=== PATIENT | male | born 1970 | race African-American/Black ===

== ENCOUNTER 2017-02-11 16:42 | Emergency (ER) | payer OTHER ==
[~2017-02-11 16:42] MED LIST: HYDR10TA16 PO; Z.0.NO CURRENT MEDS
[2017-02-11 16:46] VITALS: BP 169/89; PULSE 77; RESP 16; TEMP 98.4; O2SAT 97
[2017-02-11] MEDS ORDERED: KETOROLAC TROMETHAMINE 60 MG/2 ML (IM) VIAL IM ONE (18:30)
[2017-02-11] MEDS ORDERED: ACETAMINOPHEN/HYDROcodone 325 MG/5 MG TAB PO ONE (18:30)
--- NOTE | 2017-02-11 18:34 | RADRPT ---
EXAM DATE/TIME: 02/11/2017 17:53 [place] COMPARISON: No previous studies available for comparison. INDICATIONS : Left lower posterior pain in ribs due to fall yesterday. MEDICAL HISTORY : None. SURGICAL HISTORY : None. ENCOUNTER: Initial ACUITY: 2 days PAIN SCORE: 10/10 LOCATION: Left lower posterior FINDINGS: The heart size is normal. The lungs are free of focal consolidation. There is a possible calcified gr anuloma in the right midlung. No effusion is seen. The bony structures appear grossly intact. CONCLUSION: No acute disease. Gustavo Pineda MD on February 11, 2017 at 18:32 Board Certified Radiologist. This report was verified electronically.
--- NOTE | 2017-02-11 18:35 | PD ---
HPI Chief Complaint: Pain: Acute or Chronic Time Seen by Provider: 18:21 Travel History International Travel<30 days: No Contact w/Intl Traveler<30days: No Traveled to known affect area: No History of Present Illness HPI 46-year-old male with pain to his left ribs after a slip and fall that occurred last night at work. States that he landed on his left side and thinks he broke a rib. States he has pain with inspiration and movement. The pain is moderate , constant, and occasionally sharp. Denies radiation of pain. Patient denies shortness of breath. States he took a friend's pain medication and had good relief with this. Patient denies head trauma, LOC, dizziness,, headache neck pain, back pain. He has no other complaints today. PFSH Past Medical History Cancer: No Endocrine: No Immune Disorder: No Implanted Vascular Access Dvce: No Psychiatric: No Social History Alcohol Use: Yes (2 BEERS A DAY) Tobacco Use: Yes (pack a day ) Substance Use: Yes ([facility] ) Allergies-Medications (Allergen,Severity, Reaction): Coded Allergies: No Known Allergies (Verified , 04/27/15) Reported Meds & Prescriptions Reported Meds & Active Scripts Active Ibuprofen 800 Mg Tab 800 Mg PO TID 10 Days Reported Lortab 10/500 (Acetaminophen/Hydrocodone Bitart) 10 Mg/500 Mg Tab 1 Tab PO Q4- 6HPRN FOR PAIN No Current Meds (Miscellaneous Medication) Replaced By [facility] Review of Systems Except as stated in HPI: all other systems reviewed are Neg Physical Exam Narrative GENERAL: Well-developed well-nourished in mild distress SKIN: Focused skin assessment warm/dry. HEAD: Atraumatic. Normocephalic. NECK: Trachea midline. No JVD. CARDIOVASCULAR: Regular rate and rhythm. No murmur appreciated. RESPIRATORY: No accessory muscle use. Clear to auscultation. Breath sounds equal bilaterally. Left thoracic, mid to posterior axillary- TTP over fifth rib area. Obvious muscle spasms versus deformity of the rib. BACK: No CVA tenderness. No rash. No point tenderness on palpation of the spine. GASTROINTESTINAL: Abdomen soft, non-tender, nondistended. Hepatic and splenic margins not palpable. MUSCULOSKELETAL: No obvious deformities. No clubbing. No cyanosis. No edema. NEUROLOGICAL: Awake and alert. No obvious cranial nerve deficits. Motor grossly within normal limits. Normal speech. PSYCHIATRIC: Appropriate mood and affect; insight and judgment normal. Data Data Last Documented VS Vital Signs Date Time Temp Pulse Resp B/P (MAP) Pulse Ox O2 Delivery O2 Flow Rate FiO2 02/11/17 19:16 02/11/17 16:46 98.4 77 16 97 Orders Orders Chest, Pa & Lat (02/11/17 ) Ketorolac Inj (Toradol Inj) (02/11/17 18:30) Acetamin-Hydrocod 325-5 Mg ([place] 5-325 (02/11/17 18:30) Ed Discharge Order (02/11/17 19:01) [facility] Medical Decision Making Medical Screen Exam Complete: Yes Emergency Medical Condition: Yes Differential Diagnosis Left rib fracture versus contusion versus abrasion Narrative Course 46-year-old male with pain to his left ribs after a slip and fall that occurred last night at work. States that he landed on his left side and thinks he broke a rib. States he has pain with inspiration and movement. The pain is moderate , constant, and occasionally sharp. Denies radiation of pain. Patient denies shortness of breath. States he took a friend's pain medication and had good relief with this. Patient denies head trauma, LOC, dizziness, headache, neck pain, back pain. He has no other complaints today. Vital signs stable Chest x-ray-no acute process Patient given hydrocodone and Toradol in the ED. Will be discharged with ibuprofen for pain. Instructed the patient to continue normal breathing to reduce the possibility of complications. Pt understood and will comply. Advised to return for worsening symptoms. Diagnosis Primary Impression: Rib contusion Qualified Codes: S20.211A - Contusion of right front wall of thorax, initial encounter Referrals: Primary Care Physician Additional Instructions: Continue to take deep breaths as tolerated. Use medications as prescribed If her pain persists or worsens return to the emergency department Your chest x-ray contained a potential abnormality. Follow-up with your primary care physician regarding this finding. Scripts Ibuprofen (Ibuprofen) 800 Mg Tab 800 MG PO TID for Arthritis Pain for 10 Days, TAB 0 Refills Prov: Checo Malloy MD 02/11/17 Disposition: 01 DISCHARGE HOME Condition: Stable Taryn Aguirre Feb 11, 2017 18:35
[2017-02-11] MEDS ORDERED: IBUP1TAB7 PO (18:40)
== END 2017-02-11 19:17 | disposition home or self-care (01) ==
LOC: NEPK 16:42
DX: S20.211A Contusion of right front wall of thorax, initial encounter (principal); F17.200 Nicotine dependence, unspecified, uncomplicated; W01.0XXA Fall on same level from slipping, tripping and stumbling without subsequent striking against object, initial encounter; Y99.0 Civilian activity done for income or pay
CPT/HCPCS: 71020; 96372; 99284; J1885